=== PATIENT | male | born 1975 | race Caucasian/White ===

== ENCOUNTER 2023-08-18 20:51 | Inpatient (IN) | payer OTHER, SELFPAY ==
[2023-08-18 15:22] VITALS: BP 166/89
[2023-08-18 15:44] LABS: % Basophils 0.5 % (0-2); % Eosinophils 1.2 % (0-6); % Immature Granulocytes 0.5 % (0-0.5); % Lymphocytes 24.3 % (20.5-51.1); % Monocytes 7.2 % (1.7-9.3); % Neutrophils 66.3 % (42.2-75.2); Absolute Basophils 0.1 10^3/uL (0-0.2); Absolute Eosinophils 0.2 10^3/uL (0-0.7); Absolute Immature Granulocytes 0.1 10^3/uL (0-0.05); Absolute Lymphocytes 2.9 10^3/uL (1.2-3.4); Absolute Monocytes 0.9 10^3/uL (0.1-0.6); Hematocrit 41.2 % (39.0-52.0); Hemoglobin 14.6 g/dL (13.0-18.0); Mean Corp Hgb Conc. 35.4 g/dL (33.0-37.0); Mean Corpuscular Hgb 29.4 pg (27.0-31.0); Mean Corpuscular Volume 82.9 fL (80.0-94.0); Mean Platelet Volume 9.9 fL (7.4-10.4); Nucleated Red Blood Cells % 0 % (-); Platelet Count 309 10^3/uL (130-400); Red Blood Cell Count 4.97 10^6/uL (4.70-6.10); Red Cell Dist. Width 12.6 % (11.5-14.5)
[2023-08-18 15:54] LABS: Lactic Acid 2.9 mmol/L (0.7-2.0)
[2023-08-18 15:55] LABS: ALT (SGPT) 68 U/L (0-50); AST (SGOT) 69 U/L (17-59); Albumin 5.2 g/dl (3.5-5.0); Alkaline Phosphatase 77 U/L (38-126); Blood Urea Nitrogen 16 mg/dl (9-20); Calcium 10.3 mg/dl (8.4-10.2); Carbon Dioxide 25 mmol/L (22-30); Chloride 97 mmol/L (98-107); Glucose 133 mg/dl (70-99); Sodium 137 mmol/L (135-145); Total Bilirubin 0.8 mg/dl (0.2-1.3); eGFR > 60.00
[2023-08-18 16:34] LABS: Lipase > 4000 U/L (23-300)
[2023-08-18] MEDS: ZOFRAN 4 MG IV (16:39)
[2023-08-18] MEDS: TORADOL 15 MG IV (16:39)
[2023-08-18] MEDS: NSS 1000 IV ×2 (16:42→21:59)
--- NOTE | 2023-08-18 17:23 | ED.GENMED ---
History of Present Illness
General
Chief Complaint: Abdominal Pain
Source: patient
Exam Limitations: none
Time Seen by Provider: 08/18/23 16:03
Nursing documentation reviewed up to this point in time: agreed with
Travel History
Have you had any contact with someone who has COVID-19?: No
Do you have any symptoms of coronavirus? Fever > 100 degrees, chills, cough, shortness of breath, sore throat, loss of taste or smell, muscle aches, or headache?: No
History of Present Illness
History of Present Illness:
47-year-old male with past ministry of hypertension hyperlipidemia presenting to the emergency department today with concerns of diffuse abdominal pain starting today did have an episode of vomiting. Denies diarrhea denies any recent illnesses or
fever. Is a daily drinker.
Review of Systems
Review of Systems
Allergies reviewed?: Yes
All Other Systems: ROS reviewed and negative except as documented in HPI and ROS
Phy Exam
Physical Exam
Physical Exam:
GENERAL: Alert , in no apparent distress
EYE: pupils equal and reactive
NECK: Supple, no significant adenopathy.
ENT: o/p clr, mmm.
CARDIAC: Regular rate and rhythm .
LUNGS: Clear breath sounds bilaterally, no acute respiratory distress, no wheezes/rales/rhonchi
ABDOMEN: Diffuse abdominal pain
NEUROLOGICAL: Alert and oriented, no focal neuro deficits
SKIN: Warm and dry, skin intact.
MUSCULOSKELETAL: No edema, well perfused.
PSYCH: Normal and appropriate interaction.
Course
Orders/Labs/Results
Orders:
Orders
08/18/23 Dinner
NPO
Allow oral meds: Yes
Allow clear liquids: No
NPO with Ice Chips: Yes
08/18/23 15:31
Complete Blood Count/With Diff Urgent
Comprehensive Metabolic Panel Urgent
Lactic Acid Urgent
Lipase Urgent
08/18/23 16:15
Urinalysis Reflex To Culture Urgent
Date Specimen was Collected: 08/19/23
Time Specimen was Collected: 07:39
0.9% Sodium Chloride 1000 ml [Nss] 1,000 ml IV BOLUS
Ketorolac [Toradol] 15 mg IV NOW STA
Ondansetron Injectable [Zofran] 4 mg IV NOW STA
08/18/23 16:16
CT Abd/Pel (IV only)-DH only Urgent
Comment:
Reason For Exam: diffuse abd pain
08/18/23 17:20
HYDROmorphone [Dilaudid] 1 mg IV NOW STA
08/18/23 18:06
Potassium Chloride [KCl] 20 meq 0.9% Sodium Chloride 150 ml [Nss] 150 ml IV NOW
08/18/23 19:50
Admit/Transfer Patient As Directed
Co-Sign Provider:
Level of Care: Inpatient admission
Assign to:: Telemetry
Physician / Group: Dr. Brandt Marrero/Hospitalists
Diagnosis: Acute Pancreatitis
Reason for Telemetry: Arrhythmia
Date to Stop Telemetry: 08/21/23
Time to Stop Telemetry: 11:00
Reason for Hospitalization: Acute Pancreatitis
Expected length of stay greater than two midnights?: Yes
ELOS- Estimated Length of Stay in days: 3
I certify the patient meets the requirements for IP care: Yes
08/18/23 19:52
Code Status As Directed
Resuscitation Status: Full Code
08/18/23 19:57
0.9% Sodium Chloride [Nss (Preservative Free)] See Protocol IV PRN PRN
Lorazepam [Ativan] 1 mg IV Q1HPRN PRN
Lorazepam [Ativan] 1 mg PO Q2HPRN PRN
Lorazepam [Ativan] 2 mg IV Q1HPRN PRN
MSAS SCORE As Directed
MSAS Score 0-4: Repeat MSAS every 2 hours until 0-4 for three consecutive assessments, then every 4 hours x 48
hours.
MSAS Score 5-7: For MILD withdrawl symptoms. Repeat MSAS and RASS every 2 hours
MSAS Score 8-11: For MODERATE withdrawal symptoms. Repeat MSAS and RASS every 1 hour. Consider ICU or IMU
level of care.
MSAS Score > 11: For SEVERE withdrawal symptoms. Repeat MSAS and RASS every 1 hour. Notify provider, consider
ICU level of care.
MSAS Additional Instructions: If no improvement or no decrease in score from severe to moderate within 12
hours, consult psychiatry
MSAS Notify Provider: Notify provider if patient requires more than 10 mg of Lorazepam in eight hour period.
08/18/23 20:07
HYDROmorphone [Dilaudid] 0.5 mg IV Q4HPRN PRN
08/18/23 21:00
0.9% Sodium Chloride 1000 ml [Nss] 1,000 ml IV 250 mls/hr
Bisacodyl [Dulcolax] 10 mg RECTAL [id number] PRN
Docusate W/Senna [Senokot-S] 1 tablet PO BIDPRN PRN
Enoxaparin Sodium [Lovenox] 40 mg SC QPM
Polyethylene Glycol Powder [Miralax] 17 grams PO DAILYPRN PRN
08/18/23 21:00
Activity As Directed
Activity Level: As Tolerated
Intake/ Output As Directed
Frequency: q12h
Pneumatic Compression Sleeves As Directed
Type: Knee high
Vital Signs As Directed
Frequency: Per unit guidelines
DX Deep Vein Thrombosis Video Routine
08/18/23 22:00
Famotidine [Pepcid] 40 mg PO HS
08/19/23 00:00
Thiamine Injection 200 mg IV Q8
08/19/23 05:19
Complete Blood Count/With Diff IN AM
Comprehensive Metabolic Panel IN AM
Lipid Profile [Cardiovascular Evaluation] IN AM
Magnesium IN AM
08/19/23 08:00
Escitalopram Oxalate [Lexapro] 20 mg PO DAILY
FOLic ACID [Folvite] 1 mg PO DAILY
Multivitamin [Theragran] 1 tablet PO DAILY
Pantoprazole [Protonix] 40 mg PO DAILY
Rosuvastatin Calcium [Crestor] 10 mg PO DAILY
08/19/23 20:03
MR Abdomen W/o & W Contrast Routine
Comment: MRCP
Reason For Exam: MRCP
Recent pill cam endoscopy?: No
08/20/23 06:00
Complete Blood Count/With Diff IN AM
Comprehensive Metabolic Panel IN AM
08/21/23 06:00
Complete Blood Count/With Diff IN AM
Comprehensive Metabolic Panel IN AM
08/21/23 11:00
DC Protocol for Telemetry ONCE
08/21/23 20:00
Thiamine HCl [Vitamin B1] 100 mg PO BID
08/22/23 06:00
Complete Blood Count/With Diff IN AM
Comprehensive Metabolic Panel IN AM
08/23/23 06:00
Complete Blood Count/With Diff IN AM
Comprehensive Metabolic Panel IN AM
08/24/23 06:00
Complete Blood Count/With Diff IN AM
Comprehensive Metabolic Panel IN AM
08/25/23 06:00
Complete Blood Count/With Diff IN AM
Comprehensive Metabolic Panel IN AM
08/26/23 06:00
Complete Blood Count/With Diff IN AM
Comprehensive Metabolic Panel IN AM
08/27/23 06:00
Complete Blood Count/With Diff IN AM
Comprehensive Metabolic Panel IN AM
08/28/23 06:00
Complete Blood Count/With Diff IN AM
Comprehensive Metabolic Panel IN AM
Abnormal Lab Results
08/18/23
15:31
WBC 12.0 H 10^3/uL
(4.8-10.8)
Abs Immat Gran (auto) 0.1 H 10^3/uL
(0-0.05)
Absolute Neuts (auto) 8.0 H 10^3/uL
(1.4-6.5)
Absolute Monos (auto) 0.9 H 10^3/uL
(0.1-0.6)
Potassium 3.0 L mmol/L
(3.5-5.1)
Chloride 97 L mmol/L
(98-107)
Glucose 133 H mg/dl
(70-99)
Lactic Acid 2.9 H mmol/L
(0.7-2.0)
Calcium 10.3 H mg/dl
(8.4-10.2)
AST 69 H U/L
(17-59)
ALT 68 H U/L
(0-50)
Albumin 5.2 H g/dl
(3.5-5.0)
Lipase > 4000 H* U/L
(23-300)
08/18/23 15:31
08/18/23 15:31
Vital Signs
Initial and Last Documented VS:
Initial Vital Signs
Temp Pulse Resp BP Pulse Ox
98.2 F 99 18 166/89 99
08/18/23 15:22 08/18/23 15:22 08/18/23 15:22 08/18/23 15:22 08/18/23 15:22
Last Documented Vital Signs
Temp Pulse Resp BP Pulse Ox
98.2 F 93 18 146/101 98
08/18/23 15:22 08/19/23 08:00 08/19/23 08:00 08/19/23 08:00 08/19/23 07:30
MDM/Problems Addressed
MDM/Problems Addressed:
47-year-old male presenting to the emergency department today with concerns of abdominal pain severe today. Is a daily drinker. On arrival vital signs showing pulse rate in the high 90s blood pressure elevated but otherwise vital signs are normal
white count 12 slightly low potassium 3.0 lactic acid elevated 2.9 and lipase greater than 4000 consistent with pancreatitis patient was started on fluids and given pain medication additionally potassium low given potassium supplementation here CT
scan was obtained to ensure no complication. Uncomplicated pancreatitis on CT stable for admission.
*Critical Care Note
Total Time (30-74mins, 75-104mins- exclusive of procedures): Not Applicable
ED Attending Note
-
Portions of this chart may have been created with voice recognition software.� Occasional wrong word or��sound alike� substitutions may have occurred due to the inherent limitations of voice recognition software.
Discharge Plan
Departure
Patient Disposition: Admit
Date of Disposition: 08/18/23
Time of Disposition: 17:58
Admit to: Med/Surg
Admit to doctor: Cristhian
Presentation/result/management discussed w/ accepting MD/DO: Hospitalist
Patient with high blood pressure during this ER visit?: No
Condition: Good
Covid-19: Not Applicable
Discharge Problem:
Acute pancreatitis, Acute hypokalemia
Interventions
Interventions:
*Risk Screen - Suicide Last Done: 08/18/23 15:22
*General Assessment Last Done: 08/18/23 15:22
*Neglect/Abuse Screening Last Done: 08/18/23 15:22
ED- Fall Risk Assessment Last Done: 08/18/23 18:34
*ED COVID-19 Vaccine History Last Done: 08/18/23 18:32
IV-Uwihzc-Ixqxllayyi Assessment Last Done: 08/19/23 07:30
[2023-08-18] MEDS: DILAUDID 1 MG IV (18:04)
[2023-08-18] MEDS: KCL 160 MEQ IV (18:26)
[2023-08-18 18:32] VITALS: BMI 30.8
[2023-08-18 18:33] VITALS: BP 144/103
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
[2023-08-18] MEDS: DILAUDID 0.5 MG IV (20:32)
[2023-08-18 20:35] VITALS: BP 158/109
[2023-08-18] MEDS: LOVENOX 40 MG SC (21:53)
[2023-08-18] MEDS: PEPCID PO (21:59)
[2023-08-18] MEDS: THIAMINE INJECTION 200 MG IV (23:19)
[2023-08-18 23:28] VITALS: BP 161/110
[2023-08-18] MEDS: ATIVAN 1 MG IV (23:40)
[2023-08-19] VITALS (14 sets, daily range): BP systolic 128–153; BP diastolic 82–117; BMI 28.4
[2023-08-19] MEDS: NSS 1000 IV ×6 (01:18→21:15)
[2023-08-19] MEDS: DILAUDID 0.5 MG IV ×6 (02:39→21:32)
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
[2023-08-19 05:39] LABS: % Basophils 0.3 % (0-2); % Eosinophils 0.5 % (0-6); % Immature Granulocytes 0.4 % (0-0.5); % Lymphocytes 14.8 % (20.5-51.1); % Monocytes 6.4 % (1.7-9.3); % Neutrophils 77.6 % (42.2-75.2); Absolute Eosinophils 0.1 10^3/uL (0-0.7); Absolute Lymphocytes 1.5 10^3/uL (1.2-3.4); Absolute Monocytes 0.6 10^3/uL (0.1-0.6); Absolute Neutrophils 7.7 10^3/uL (1.4-6.5); Hematocrit 40.3 % (39.0-52.0); Hemoglobin 13.9 g/dL (13.0-18.0); Mean Corp Hgb Conc. 34.5 g/dL (33.0-37.0); Mean Corpuscular Hgb 29.6 pg (27.0-31.0); Mean Corpuscular Volume 85.9 fL (80.0-94.0); Mean Platelet Volume 10.1 fL (7.4-10.4); Nucleated Red Blood Cells % 0 % (-); Platelet Count 253 10^3/uL (130-400); Red Blood Cell Count 4.69 10^6/uL (4.70-6.10); Red Cell Dist. Width 12.6 % (11.5-14.5); White Blood Cell Count 9.9 10^3/uL (4.8-10.8)
[2023-08-19 06:04] LABS: ALT (SGPT) 52 U/L (0-50); AST (SGOT) 47 U/L (17-59); Albumin 4.1 g/dl (3.5-5.0); Alkaline Phosphatase 65 U/L (38-126); Blood Urea Nitrogen 14 mg/dl (9-20); Calcium 9.3 mg/dl (8.4-10.2); Carbon Dioxide 25 mmol/L (22-30); Chloride 103 mmol/L (98-107); Estimated Creatinine Clearance > 125 ml/min; Glucose 115 mg/dl (70-99); HDL Cholesterol 54 mg/dl; LDL Cholesterol, Calculated 69 mg/dl; Magnesium 1.7 mg/dl (1.6-2.3); Potassium 3.3 mmol/L (3.5-5.1); Sodium 138 mmol/L (135-145); Total Cholesterol 171 mg/dl (50-199); Total Protein 6.7 g/dl (6.3-8.2); Triglyceride 241 mg/dl (10-149); Very Low Density Lipoprotein 48 mg/dl (0-30); eGFR > 60.00
[2023-08-19] MEDS: PROTONIX 40 MG PO (07:23)
[2023-08-19] MEDS: THIAMINE INJECTION 200 MG IV ×3 (07:24→23:22)
[2023-08-19] MEDS: CRESTOR 10 MG PO (07:27)
[2023-08-19] MEDS: LEXAPRO 20 MG PO (07:28)
[2023-08-19] MEDS: THERAGRAN 1 TABLET PO (07:28)
[2023-08-19] MEDS: FOLVITE 1 MG PO (07:29)
[2023-08-19 07:54] LABS: Urine Albumin Trace (Neg - Trace); Urine Bilirubin 1+ (Negative); Urine Character Clear (Clear); Urine Color Yellow; Urine Glucose Negative (Negative); Urine Ketone Trace (Negative); Urine Leukocyte Negative (Negative); Urine Nitrite Negative (Negative); Urine Occult Blood Negative (Negative); Urine Urobilinogen Negative (Neg - 1+)
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
--- NOTE | 2023-08-19 16:14 | W.PN.HOSP.TC ---
Today's Communication/Plan
-
Continue acute pancreatitis evaluation and treatment
Appreciate GI
Assessment / Plan
Assessment / Plan
Physical Exam
General: Conversant and Pain
HEENT: Normocephalic and Moist mucous membranes
Respiratory: Clear
Cardiac: S1/S2 and Regular Rhythm
GI: Soft, Normal Bowel Sounds and Tender
Musculoskeletal: No Cyanosis and No Edema
Skin: Warm and Dry
Neuro: Awake, Alert and AO x 3
Psych: Calm and Intact Judgment/Insight
Assessment/Plan
Acute pancreatitis.
-NPO
-Normal Saline IV fluids at 250 cc/hr
-Consult GI, recommendations appreciated
-RUQ ultrasound to check for gallstones
-MRCP
-PRN IV Dilaudid
-Lipid panel -- triglycerides 241
-Hold home HCTZ
Alcoholism
-Thiamine and Folic Acid
-Alcohol withdrawal protocol
Hypokalemia
- Replace potassium
- Follow-up magnesium
Hypertension
-Hold home HCTZ due to pancreatitis
Hyperlipidemia
-Continue Rosuvastatin
Few small nonspecific retroperitoneal lymph nodes on CT Imaging
Mild hepatomegaly with diffuse hepatic steatosis on CT Imaging
Possible small hiatal hernia on CT Imaging
DVT Prophylaxis: Lovenox
Code Status: Full Code
Anticipated Discharge: 24 - 48 hours
Subjective/Interval History
-
Date of Service: August 19, 2023
Patient was seen and examined. He reported that although his abdominal pain had significantly improved, he was still in a lot of abdominal pain.
Objective Data
-
Labs:
Laboratory Results
08/19/23
05:19
WBC 9.9
Hgb 13.9
Hct 40.3
Plt Count 253
Sodium 138
Potassium 3.3 L
Chloride 103
Carbon Dioxide 25
BUN 14
Creatinine 0.6 L
Glucose 115 H
Calcium 9.3
Total Bilirubin 1.0
AST 47
ALT 52 H
Alkaline Phosphatase 65
Vital Signs:
Vital Signs
Temp Pulse Resp BP Pulse Ox
98.6 F 94 24 150/103 99
08/19/23 15:38 08/19/23 13:45 08/19/23 15:38 08/19/23 10:00 08/19/23 15:38
I&O
08/18/23 08/19/23 08/20/23
06:59 06:59 06:59
Intake Total 3000 / 3000
Output Total 300 / 300
Balance 3000 / 3000 -300 / -300
[2023-08-19] MEDS: KCL 40 MEQ PO (16:50)
[2023-08-19 16:52] LABS: Lipase > 4000 U/L (23-300)
[2023-08-19] MEDS: LOVENOX 40 MG SC (17:47)
[2023-08-19] MEDS: PEPCID 40 MG PO (21:13)
[2023-08-20] MEDS: DILAUDID 0.5 MG IV ×8 (00:34→23:06)
[2023-08-20] MEDS: NSS 1000 IV ×4 (02:32→20:02)
[2023-08-20 03:00] VITALS: BP 137/90
[2023-08-20 05:31] LABS: % Basophils 0.3 % (0-2); % Eosinophils 1.9 % (0-6); % Immature Granulocytes 0.3 % (0-0.5); % Lymphocytes 14.5 % (20.5-51.1); % Monocytes 8.4 % (1.7-9.3); % Neutrophils 74.6 % (42.2-75.2); Absolute Eosinophils 0.2 10^3/uL (0-0.7); Absolute Lymphocytes 1.3 10^3/uL (1.2-3.4); Absolute Monocytes 0.7 10^3/uL (0.1-0.6); Absolute Neutrophils 6.4 10^3/uL (1.4-6.5); Hematocrit 32.1 % (39.0-52.0); Hemoglobin 11.4 g/dL (13.0-18.0); Mean Corp Hgb Conc. 35.5 g/dL (33.0-37.0); Mean Corpuscular Hgb 29.9 pg (27.0-31.0); Mean Corpuscular Volume 84.3 fL (80.0-94.0); Mean Platelet Volume 9.9 fL (7.4-10.4); Nucleated Red Blood Cells % 0 % (-); Platelet Count 180 10^3/uL (130-400); Red Blood Cell Count 3.81 10^6/uL (4.70-6.10); Red Cell Dist. Width 12.3 % (11.5-14.5); White Blood Cell Count 8.6 10^3/uL (4.8-10.8)
[2023-08-20 06:01] LABS: ALT (SGPT) 37 U/L (0-50); AST (SGOT) 37 U/L (17-59); Albumin 3.3 g/dl (3.5-5.0); Alkaline Phosphatase 61 U/L (38-126); Blood Urea Nitrogen 7 mg/dl (9-20); Calcium 8.4 mg/dl (8.4-10.2); Carbon Dioxide 24 mmol/L (22-30); Chloride 101 mmol/L (98-107); Estimated Creatinine Clearance > 125 ml/min; Glucose 73 mg/dl (70-99); Potassium 3.4 mmol/L (3.5-5.1); Sodium 135 mmol/L (135-145); Total Bilirubin 1.2 mg/dl (0.2-1.3); Total Protein 5.6 g/dl (6.3-8.2); eGFR > 60.00
[2023-08-20 07:30] VITALS: BP 135/85
[2023-08-20] MEDS: THERAGRAN 1 TABLET PO (07:39)
[2023-08-20] MEDS: PROTONIX 40 MG PO (07:39)
[2023-08-20] MEDS: LEXAPRO 20 MG PO (07:39)
[2023-08-20] MEDS: CRESTOR 10 MG PO (07:39)
[2023-08-20] MEDS: THIAMINE INJECTION 200 MG IV ×3 (07:40→23:05)
[2023-08-20] MEDS: FOLVITE 1 MG PO (07:40)
[2023-08-20 12:00] VITALS: BP 120/84
[2023-08-20] MEDS: MIRALAX 17 GRAMS PO (12:31)
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
--- NOTE | 2023-08-20 15:18 | CM ---
Alert awake oriented patient who lives with his SO Ban and 22yo son Dannie who lives in a 2 story home with 4 step to enter and 16 steps to bed and bathroom. He is independent in driving and in all activities of daily living.He was offered VN he
declined need.
NO VN hx / No SNF history
Pharmacy [facility] [place]
PCP DR Alexandrea Chu
PLAN Home Declined VN
[2023-08-20] MEDS: KCL 40 MEQ PO (15:46)
[2023-08-20 15:58] VITALS: BMI 28.4
[2023-08-20 16:00] VITALS: BP 129/91
[2023-08-20] MEDS: NSS IV (16:54)
[2023-08-20] MEDS: LOVENOX 40 MG SC (18:54)
[2023-08-20 19:00] VITALS: BP 138/91
--- NOTE | 2023-08-20 20:22 | W.PN.HOSP.TC ---
Today's Communication/Plan
-
Reduced rate of IV fluids
Hopefully pain improves
Advance diet tomorrow
Assessment / Plan
Assessment / Plan
Physical Exam
General: Conversant and Pain
HEENT: Normocephalic and Moist mucous membranes
Respiratory: Clear
Cardiac: S1/S2 and Regular Rhythm
GI: Soft, Normal Bowel Sounds and Tender
Musculoskeletal: No Cyanosis and No Edema
Skin: Warm and Dry
Neuro: Awake, Alert and AO x 3
Psych: Calm and Intact Judgment/Insight
Assessment/Plan
Acute pancreatitis
Minimal Ascites on RUQ Ultrasound
-Clear Liquids Diet
-Reduced Normal Saline IV fluids to 75 cc/hr
-Consult GI, recommendations appreciated
-RUQ ultrasound to check for gallstones --> no gallstones
-MRCP
-PRN IV Dilaudid
-Lipid panel -- triglycerides 241
-Hold home HCTZ
-Transaminases improved
Alcoholism
-Thiamine and Folic Acid
-Alcohol withdrawal protocol
Hypokalemia
- Replace potassium
- Follow-up magnesium
Hypertension
-Hold home HCTZ due to pancreatitis
Hyperlipidemia
-Continue Rosuvastatin
Fatty Liver
Severe IZQUIERDO
Few small nonspecific retroperitoneal lymph nodes on CT Imaging
Mild hepatomegaly with diffuse hepatic steatosis on CT Imaging
Possible small hiatal hernia on CT Imaging
DVT Prophylaxis: Lovenox
Code Status: Full Code
Anticipated Discharge: 24 - 48 hours
Subjective/Interval History
-
Date of Service: August 20, 2023
Patient was seen and examined. He reported continued central abdominal pain.
Objective Data
-
Vital Signs:
Vital Signs
Temp Pulse Resp BP Pulse Ox
100.1 F 75 18 129/91 95
08/20/23 16:00 08/20/23 16:00 08/20/23 16:00 08/20/23 16:00 08/20/23 16:00
I&O
08/19/23 08/20/23 08/21/23
06:59 06:59 06:59
Intake Total 3000 / 3000 2580 / 2580 480 / 480
Output Total 1375 / 1375 2575 / 2575
Balance 3000 / 3000 1205 / 1205 -2095 / -209
[2023-08-20] MEDS: PEPCID 40 MG PO (21:22)
[2023-08-20 23:00] VITALS: BP 139/92
[2023-08-21 03:00] VITALS: BP 133/88
[2023-08-21] MEDS: DILAUDID 0.5 MG IV ×4 (04:45→16:46)
[2023-08-21] MEDS: NSS 1000 IV (04:46)
[2023-08-21 07:37] VITALS: BP 139/92
[2023-08-21 07:48] LABS: % Basophils 0.5 % (0-2); % Eosinophils 2.6 % (0-6); % Immature Granulocytes 0.5 % (0-0.5); % Lymphocytes 14.1 % (20.5-51.1); % Monocytes 8.8 % (1.7-9.3); % Neutrophils 73.5 % (42.2-75.2); Absolute Eosinophils 0.2 10^3/uL (0-0.7); Absolute Lymphocytes 1.2 10^3/uL (1.2-3.4); Absolute Monocytes 0.8 10^3/uL (0.1-0.6); Absolute Neutrophils 6.3 10^3/uL (1.4-6.5); Hematocrit 32.3 % (39.0-52.0); Hemoglobin 11.6 g/dL (13.0-18.0); Mean Corp Hgb Conc. 35.9 g/dL (33.0-37.0); Mean Corpuscular Hgb 30.1 pg (27.0-31.0); Mean Corpuscular Volume 83.7 fL (80.0-94.0); Mean Platelet Volume 10.2 fL (7.4-10.4); Nucleated Red Blood Cells % 0 % (-); Platelet Count 214 10^3/uL (130-400); Red Blood Cell Count 3.86 10^6/uL (4.70-6.10); Red Cell Dist. Width 12.2 % (11.5-14.5); White Blood Cell Count 8.6 10^3/uL (4.8-10.8)
[2023-08-21 08:39] LABS: ALT (SGPT) 28 U/L (0-50); AST (SGOT) 35 U/L (17-59); Albumin 3.7 g/dl (3.5-5.0); Alkaline Phosphatase 69 U/L (38-126); Blood Urea Nitrogen 5 mg/dl (9-20); Calcium 9.1 mg/dl (8.4-10.2); Carbon Dioxide 26 mmol/L (22-30); Chloride 99 mmol/L (98-107); Estimated Creatinine Clearance 118 ml/min; Glucose 92 mg/dl (70-99); Potassium 3.4 mmol/L (3.5-5.1); Sodium 136 mmol/L (135-145); Total Bilirubin 1.1 mg/dl (0.2-1.3); Total Protein 6.2 g/dl (6.3-8.2); eGFR > 60.00
[2023-08-21] MEDS: PROTONIX 40 MG PO (09:13)
[2023-08-21] MEDS: FOLVITE 1 MG PO (09:13)
[2023-08-21] MEDS: CRESTOR 10 MG PO (09:13)
[2023-08-21] MEDS: THERAGRAN 1 TABLET PO (09:13)
[2023-08-21] MEDS: MIRALAX 17 GRAMS PO (09:13)
[2023-08-21] MEDS: THIAMINE INJECTION 200 MG IV (09:14)
[2023-08-21] MEDS: LEXAPRO 20 MG PO (09:14)
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
[2023-08-21 11:40] VITALS: BP 138/86
--- NOTE | 2023-08-21 14:19 | W.PN.HOSP.TC ---
Today's Communication/Plan
-
Discharge today
Assessment / Plan
Assessment / Plan
Physical Exam
General: Conversant and Pain
HEENT: Normocephalic and Moist mucous membranes
Respiratory: Clear
Cardiac: S1/S2 and Regular Rhythm
GI: Soft, Normal Bowel Sounds and Tender
Musculoskeletal: No Cyanosis and No Edema
Skin: Warm and Dry
Neuro: Awake, Alert and AO x 3
Psych: Calm and Intact Judgment/Insight
Assessment/Plan
Acute pancreatitis
Minimal Ascites on RUQ Ultrasound
-Low Fat Diet
-Status post Normal Saline IV fluids
-Consulted GI, recommendations appreciated
-RUQ ultrasound to check for gallstones --> no gallstones
-Lipid panel -- triglycerides 241
-Hold home HCTZ
-Transaminases improved
Alcoholism
-Thiamine and Folic Acid
-Alcohol withdrawal protocol
Constipation
-Miralax
Hypokalemia
- Replace potassium
- Follow-up magnesium
- Potassium supplementation on discharge
- Recheck BMP in 2 to 3 days
Hypertension
-Hold home HCTZ due to pancreatitis and hypokalemia
Hyperlipidemia
-Continue Rosuvastatin
Fatty Liver
Severe IZQUIERDO
Few small nonspecific retroperitoneal lymph nodes on CT Imaging
Mild hepatomegaly with diffuse hepatic steatosis on CT Imaging
Possible small hiatal hernia on CT Imaging
DVT Prophylaxis: Lovenox
Code Status: Full Code
More than 30 minutes spent in discharge including
Final examination of the patient
Summarizing hospital stay
Instructions for continuing care to all relevant caregivers
Preparation of discharge records, prescriptions, and referral forms
Total time spent (in minutes): 39
Anticipated Discharge: Today
Subjective/Interval History
-
Date of Service: August 21, 2023
Patient was seen and examined. He reported that his abdominal pain has improved, he is tolerating a diet.
Objective Data
-
Labs:
Laboratory Results
08/21/23
06:59
WBC 8.6
Hgb 11.6 L
Hct 32.3 L
Plt Count 214
Sodium 136
Potassium 3.4 L
Chloride 99
Carbon Dioxide 26
BUN 5 L
Creatinine 0.7
Glucose 92
Calcium 9.1
Total Bilirubin 1.1
AST 35
ALT 28
Alkaline Phosphatase 69
Vital Signs:
Vital Signs
Temp Pulse Resp BP Pulse Ox
98.8 F 86 18 138/86 96
08/21/23 11:40 08/21/23 11:40 08/21/23 11:40 08/21/23 11:40 08/21/23 11:40
I&O
08/20/23 08/21/23 08/22/23
06:59 06:59 06:59
Intake Total 2580 / 2580 1805 / 1805 480 / 480
Output Total 1375 / 1375 2575 / 2575 1625 / 1625
Balance 1205 / 1205 -770 / -770 -1145 / -1145
--- NOTE | 2023-08-21 15:05 | W.DS.TRANS ---
DC Summary - Paraprofessional Aide
-
Discharge Instructions:
Discharge Diagnosis/Procedures Acute pancreatitis
Minimal Ascites on Right Upper Quadrant
Ultrasound
Alcoholism
Constipation
Hypokalemia
Hypertension
Hyperlipidemia
Fatty Liver
Severe IZQUIERDO
Few small nonspecific retroperitoneal lymph
nodes on CT Imaging
Mild hepatomegaly with diffuse hepatic steatosis
on CT Imaging
Possible small hiatal hernia on CT Imaging
Diet Low Fat,As tolerated,Low Sodium
Activity Other activity
Additional Activity DO NOT GO TO WORK OR DO ANY STRENUOUS ACTIVITY
WHILE YOU ARE TAKING OXYCODONE OR IF YOU FEEL
ABDOMINAL PAIN OR ANY OTHER SYMPTOMS THAT WOULD
IMPAIR YOUR ABILITY TO WORK SAFELY.
Driving Restrictions Not until seen by your Dr
Blood Work Recheck CBC, CMP and MAGNESIUM with your
outpatient physician's office by WednesdayAugust 22,
2023
Instructions: Acute pancreatitis
High blood pressure in adults
Hypokalemia
Hydrochlorothiazide
Checking your blood pressure at home
Stand-Alone Forms: Return to Work
Changes to Home Medications: Yes
Discharge Medications:
DC Medications w/original date entered in [employer]
dexlansoprazole 60 mg capsule,biphase delayed release 60 mg PO DAILY Gastrointestinal Issue 08/18/23
escitalopram oxalate 20 mg tablet 20 mg PO DAILY Depression 08/18/23
famotidine 40 mg tablet 40 mg PO HS Gastrointestinal Issue 08/18/23
hydrochlorothiazide 25 mg tablet 25 mg PO DAILY Blood Pressure 08/18/23
rosuvastatin 20 mg tablet 10 mg PO DAILY High Cholesterol 08/18/23
therapeutic multivitamin 1 tab PO DAILY Supplement 08/18/23
folic acid 1 mg tablet 1 mg PO DAILY #20 tabs 08/21/23
oxycodone 5 mg tablet 5 mg PO DAILYPRN PRN severe pain #3 tabs 08/21/23
polyethylene glycol 3350 17 gram oral powder packet (HealthyLax) 17 g PO DAILY #14 ea 08/21/23
potassium chloride 10 mEq tablet,extended release (Klor-Con) 10 meq PO BID #10 tabs 08/21/23
thiamine HCl (vitamin B1) 100 mg tablet 100 mg PO BID #60 tabs 08/21/23
Home Medication Changes
Folic Acid, Thiamine, PRN Oxycodone, HealthyLax and Potassium are new medications.
Hydrochlorothiazide is being held until outpatient follow-up.
Pending Results: No
Total time spent discharging patient (in min): 39
[2023-08-21 15:27] VITALS: BP 145/96
[2023-08-21] MEDS: KCL 40 MEQ PO (16:45)
--- NOTE | 2023-08-21 17:20 | CM ---
Discharged to home; no needs
Patient left the hospital before case manager specialist was able to see patient
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
== END 2023-08-21 17:00 | disposition home or self-care (01) | DRG 439 ==
LOC: 3 WEST ACU 20:51
PROVIDERS: Physician Assistant; ADMITTING PHYSICIAN Hospitalist; CONSULT PHYSICIAN Internal Medicine Gastroenterology; EMERGENCY PHYSICIAN Emergency Medicine; FAMILY PHYSICIAN Family Medicine
DX: K85.90 Acute pancreatitis without necrosis or infection, unspecified (principal); R18.8 Other ascites; K21.9 Gastro-esophageal reflux disease without esophagitis; F10.20 Alcohol dependence, uncomplicated; E87.6 Hypokalemia; E78.00 Pure hypercholesterolemia, unspecified; E78.1 Pure hyperglyceridemia; I10 Essential (primary) hypertension
CPT/HCPCS: 74177; 76700; 80053; 80061; 81003; 83605; 83690; 83735; 85025; 86140; 96361; 96374; 96375; 99285; Q9967